=== PATIENT | male | born 1995 | race African-American/Black ===

== ENCOUNTER 2019-04-18 03:46 | Emergency (ER) | payer SELFPAY ==
--- NOTE | 2019-04-18 03:53 | NUR ---
PT LEFT WITH OUT BEING TRIAGE
== END 2019-04-18 03:50 | disposition left against medical advice (07) ==
LOC: ER 03:48
DX: Z53.21 Procedure and treatment not carried out due to patient leaving prior to being seen by health care provider (principal)